=== PATIENT | female | born 1985 | race Caucasian/White ===

== ENCOUNTER 2016-11-06 08:55 | Emergency (ER) | payer OTHER ==
[~2016-11-06] VITALS: Ht 180.3 cm; Wt 147.9 kg
[~2016-11-06 08:55] MED LIST: AMOXICILLIN500 M2 PO; ANAPROX DS550 MG PO; CLARITIN10 MG PO; CLEOCIN HCL150 MG PO; FLONASE ALLERG9.9 ML NAS; MOTRIN800 MG PO; PREDNISONE10 MG PO; ROBITUSSIN AC 110 ML PO; VICODIN 5/500 505 MG PO; ZANTAC150 MG PO
[2016-11-06] MEDS ORDERED: DIFLUCAN150 MG PO (09:51)
[2016-11-06] MEDS ORDERED: AMOXICILLIN500 M2 PO (09:51)
== END 2016-11-06 10:01 | disposition home or self-care (01) ==
LOC: ED 08:55
DX: J02.9 Acute pharyngitis, unspecified (principal); F17.200 Nicotine dependence, unspecified, uncomplicated

== ENCOUNTER 2017-06-22 10:00 | Emergency (ER) | payer OTHER ==
[~2017-06-22] VITALS: Wt 147.0 kg
[~2017-06-22 10:00] MED LIST changes: +AVPAK AZITHROM250 M1 PO; +DIFLUCAN150 MG PO
== END 2017-06-22 11:45 | disposition home or self-care (01) ==
LOC: ED 10:00
DX: B34.9 Viral infection, unspecified (principal); R03.0 Elevated blood-pressure reading, without diagnosis of hypertension; F17.200 Nicotine dependence, unspecified, uncomplicated

== ENCOUNTER 2019-12-15 17:05 | Emergency (ER) | payer OTHER ==
[~2019-12-15] VITALS: Ht 180.3 cm; Wt 124.3 kg
[2019-12-15] MEDS ORDERED: ANAPROX DS550 MG PO (18:36)
== END 2019-12-15 19:03 | disposition home or self-care (01) ==
LOC: ED 17:05
DX: S92.354A Nondisplaced fracture of fifth metatarsal bone, right foot, initial encounter for closed fracture (principal); X50.0XXA Overexertion from strenuous movement or load, initial encounter; Y93.02 Activity, running; Y92.521 Bus station as the place of occurrence of the external cause; Y99.8 Other external cause status

== ENCOUNTER 2020-06-30 16:09 | Emergency (ER) | payer OTHER ==
[~2020-06-30] VITALS: Ht 175.2 cm; Wt 127.0 kg
== END 2020-06-30 16:40 | disposition home or self-care (01) ==
LOC: ED 16:09
DX: S92.351A Displaced fracture of fifth metatarsal bone, right foot, initial encounter for closed fracture (principal); Z79.899 Other long term (current) drug therapy; X58.XXXA Exposure to other specified factors, initial encounter; Y93.89 Activity, other specified; Y92.89 Other specified places as the place of occurrence of the external cause; Y99.8 Other external cause status

== ENCOUNTER 2024-04-26 21:24 | Emergency (ER) | payer SELFPAY ==
[2024-04-26 22:30] LABS: BASO % 0.4 % (0.0-1.0); EOS # 0.3 10*3/uL (0.0-0.4); EOS % 3.6 % (1.0-4.0); HEMATOCRIT 36.8 % (37.0-47.0); LYMPH # 2.7 10*3/uL (1.3-4.4); LYMPH % 31.4 % (27.0-41.0); MEAN CELL VOLUME 90.4 fl (81.0-99.0); MEAN CORPUSCULAR HGB 30.2 pg (27.0-31.0); MEAN CORPUSCULAR HGB CONC 33.4 g/dl (33.0-37.0); MEAN PLATELET VOLUME 9.9 fl (9.6-12.3); MONO # 0.7 10*3/uL (0.1-1.0); MONO % 7.7 % (3.0-9.0); NEUT # 4.9 10*3/uL (2.3-7.9); NEUT % 56.7 % (47.0-73.0); PLATELET COUNT AUTOMATED 312 10*3/uL (130-400); RED BLOOD COUNT 4.07 10*6/uL (4.10-5.10); RED CELL DISTRI WIDTH 11.9 % (0-14.5); WHITE BLOOD COUNT 8.6 10*3/uL (4.8-10.8)
[2024-04-26 22:38] LABS: BILIRUBIN Negative (Negative); BLOOD Negative (Negative); CLARITY Cloudy (Clear); COLOR Yellow (Yellow); GLUCOSE Negative (Negative); KETONE Trace (Negative); LEUKO ESTERASE 1+ (Negative); NITRITE Positive (Negative); SPECIFIC GRAVITY 1.025 (1.001-1.030)
[2024-04-26 22:49] LABS: ALKALINE PHOSPHATASE 79 U/L (46-116); BUN 15 mg/dl (9-23); CHLORIDE 111 mmol/L (98-107); SGPT/ALT 11 U/L (5-49); TOTAL PROTEIN 6.4 gm/dL (6.0-8.0)
[2024-04-26 22:53] LABS: BACTERIA 3+; RBC 0-2 rbc/hpf (0-2); WBC 21-30 wbc/hpf (0-5)
[2024-04-27] MEDS ORDERED: Ketorolac Tromethamine 30 MG/ML VIAL IM ONE (00:45)
[2024-04-27] MEDS ORDERED: SEPTDS PO (00:47)
[2024-04-27] MEDS ORDERED: Lidocaine Hydrochloride 2 ML IV ONE (01:07)
== END 2024-04-27 01:07 | disposition home or self-care (01) ==
LOC: ED 21:24
PROVIDERS: Internal Medicine
DX: R19.03 Right lower quadrant abdominal swelling, mass and lump (principal); N39.0 Urinary tract infection, site not specified; Z98.890 Other specified postprocedural states

== ENCOUNTER 2024-10-29 14:24 | Emergency (ER) | payer SELFPAY ==
[~2024-10-29] VITALS: Ht 177.8 cm; Wt 131.5 kg
[~2024-10-29 14:24] MED LIST changes: +SEPTDS PO
[2024-10-29] MEDS ORDERED: IBUPROFEN 800 MG TAB PO ONE (14:40)
[2024-10-29] MEDS ORDERED: NAPROSYN500 MG PO (14:50)
== END 2024-10-29 15:44 | disposition home or self-care (01) ==
LOC: ED 14:24
DX: S43.402A Unspecified sprain of left shoulder joint, initial encounter (principal); R07.89 Other chest pain; Z98.890 Other specified postprocedural states; X50.1XXA Overexertion from prolonged static or awkward postures, initial encounter; Y93.H1 Activity, digging, shoveling and raking; Y92.89 Other specified places as the place of occurrence of the external cause; Y99.8 Other external cause status

== ENCOUNTER 2025-07-13 10:06 | Emergency (ER) | payer SELFPAY ==
[~2025-07-13] VITALS: Ht 177.8 cm; Wt 136.1 kg
[~2025-07-13 10:06] MED LIST changes: +NAPROSYN500 MG PO
[2025-07-13] MEDS ORDERED: Acetaminophen/Oxycodone 5 MG/325 MG TABLET PO ONE (10:30)
[2025-07-13] MEDS ORDERED: MELOXICAM15 MG PO (10:32)
== END 2025-07-13 11:59 | disposition home or self-care (01) ==
LOC: ED 10:06
DX: S43.402A Unspecified sprain of left shoulder joint, initial encounter (principal); X58.XXXA Exposure to other specified factors, initial encounter; Y93.H1 Activity, digging, shoveling and raking; Y92.89 Other specified places as the place of occurrence of the external cause; Y99.8 Other external cause status